=== PATIENT | male | born 1985 ===

== ENCOUNTER 2022-01-07 01:04 | Emergency (ER) | payer SELFPAY ==
[2022-01-07] MEDS ORDERED: SODIUM CHLORIDE 0.9% 1000 ML 1,000 ML IV ONE (02:39)
--- NOTE | 2022-01-07 03:05 | XRay Report ---
CHEST 1 VIEW 01/07/2022 2:47 AM INDICATION / CLINICAL INFORMATION: Alcohol Intoxication. COMPARISON: None available. FINDINGS: SUPPORT DEVICES: None. HEART / MEDIASTINUM: No significant abnormality. LUNGS / PLEURA: No significant pulmonary or pleural abnormality. No pneumothorax. ADDITIONAL FINDINGS: No significant additional findings. IMPRESSION: 1. No acute findings. Signer Name: El Heaton MD Signed: 01/07/2022 3:01 AM Workstation Name: [id number]
--- NOTE | 2022-01-07 03:40 | Cat Scan Report ---
. CT HEAD WITHOUT CONTRAST INDICATION / CLINICAL INFORMATION: Alcohol Intoxication. TECHNIQUE: All CT scans at this location are performed using CT dose reduction for ALARA by means of automated e xposure control. COMPARISON: None available. FINDINGS: No acute intracranial hemorrhage. Ventricles are normal in size without midline shift or mass effect. Visualized orbits appear normal. Walter-white matter differentiation appears normal. Sinuses are clear ADDITIONAL FINDINGS: None. IMPRESSION: 1. No acute intracranial abnormality. Signer Name: El Heaton MD Signed: 01/07/2022 3:36 AM Workstation Name: [id number]
[2022-01-07 04:10] LABS: Alanine Aminotransferase 25 units/L (7-56); Albumin 4.3 g/dL (3.9-5); Blood Urea Nitrogen 16 mg/dL (9-20); Calcium 9.3 mg/dL (8.4-10.2); Hemolysis Index 74
[2022-01-07 04:18] LABS: Basophils % (Auto) 0.6 % (0.0-1.8); Eosinophils # (Auto) 0.4 K/mm3 (0.0-0.4); Eosinophils % (Auto) 4.4 % (0.0-4.3); Hematocrit 43.5 % (35.5-45.6); Hemoglobin 14.8 gm/dl (11.8-15.2); Lymphocytes # (Auto) 3.6 K/mm3 (1.2-5.4); Lymphocytes % (Auto) 44.7 % (13.4-35.0); Mean Corpuscular HGB Conc 34 % (32-34); Mean Corpuscular Volume 92 fl (84-94); Monocytes # (Auto) 0.5 K/mm3 (0.0-0.8); Monocytes % (Auto) 6.4 % (0.0-7.3); Platelet Count 252 K/mm3 (140-440); Red Blood Count 4.73 M/mm3 (3.65-5.03); Red Cell Distribution Width 13.2 % (13.2-15.2)
[2022-01-07 04:22] VITALS: BP 131/95
[2022-01-07 04:25] LABS: BUN/Creatinine Ratio 23
[2022-01-07 05:09] LABS: Amphetamine Screen,Urine PRESUMPTIVE POSITIVE; Benzodiazepines Screen,Urine PRESUMPTIVE POSITIVE; Cannabinoid Screen,Urine PRESUMPTIVE NEGATIVE; Cocaine Screen,Urine PRESUMPTIVE POSITIVE; Methadone Screen,Urine PRESUMPTIVE NEGATIVE; Opiate Screen,Urine PRESUMPTIVE NEGATIVE
[2022-01-07 05:35] LABS: Calcium Oxalate Crystals,Urine 3+; Mucus,Urine 2+ /HPF
--- NOTE | 2022-01-07 05:41 | Emergency Department Report ---
ED General Adult HPI - General Chief complaint: Alcohol Stated complaint: ETOH PUI?: No Time Seen by Provider: 01/07/22 02:35 Source: patient, EMS Mode of arrival: Stretcher Limitations: No Limitations - History of Present Illness Initial comments: Police called EMS for pt who was sleeping against a gas pump. Pt stated that he was drinking moonshine tonight. Arousable. - Related Data Allergies Allergy/AdvReac Type Severity Reaction Status Date / Time No Known Allergies Allergy Unverified 01/07/22 02:26 ED Review of Systems ROS: Stated complaint: ETOH Other details as noted in HPI Constitutional: denies: chills, fever Eyes: denies: eye pain, eye discharge, vision change ENT: denies: ear pain, throat pain Respiratory: denies: cough, shortness of breath, wheezing Cardiovascular: denies: chest pain, palpitations Endocrine: no symptoms reported Gastrointestinal: denies: abdominal pain, nausea, diarrhea Genitourinary: denies: urgency, dysuria Musculoskeletal: denies: back pain, joint swelling, arthralgia Skin: denies: rash, lesions Neurological: denies: headache, weakness, paresthesias Psychiatric: denies: anxiety, depression Hematological/Lymphatic: denies: easy bleeding, easy bruising ED Past Medical Hx - Past Medical History Previous Medical History?: No Hx Hypertension: No - Surgical History Past Surgical History?: No - Social History Smoking Status: Never Smoker Substance Use Type: None ED Physical Exam - General Limitations: Altered Mental Status General appearance: alert, appears intoxicated - Head Head exam: Present: atraumatic, normocephalic - Eye Eye exam: Present: normal appearance - ENT ENT exam: Present: mucous membranes moist - Neck Neck exam: Present: normal inspection - Respiratory Respiratory exam: Present: normal lung sounds bilaterally. Absent: respiratory distress - Cardiovascular Cardiovascular Exam: Present: regular rate, normal rhythm. Absent: systolic murmur, diastolic murmur, rubs, gallop - GI/Abdominal GI/Abdominal exam: Present: soft, normal bowel sounds - Rectal Rectal exam: Present: deferred - Extremities Exam Extremities exam: Present: normal inspection - Back Exam Back exam: Present: normal inspection - Neurological Exam Neurological exam: Present: alert, oriented X3 - Psychiatric Psychiatric exam: Present: normal affect, normal mood - Skin Skin exam: Present: warm, dry, intact, normal color. Absent: rash ED Course Vital Signs 01/07/22 01/07/22 01/07/22 01:05 02:00 02:15 Temperature 98 F Pulse Rate 70 58 L 69 Respiratory 18 17 16 Rate Blood Pressure 128/72 128/75 O2 Sat by Pulse 98 96 98 Oximetry 01/07/22 01/07/22 01/07/22 02:31 02:45 03:00 Temperature Pulse Rate 68 69 68 Respiratory 14 16 16 Rate Blood Pressure 128/75 121/71 128/75 O2 Sat by Pulse 98 96 97 Oximetry 01/07/22 01/07/22 01/07/22 03:17 03:31 03:45 Temperature Pulse Rate 66 69 64 Respiratory 17 16 Rate Blood Pressure 121/71 121/71 121/71 O2 Sat by Pulse 98 98 97 Oximetry 01/07/22 01/07/22 01/07/22 04:01 04:15 04:31 Temperature Pulse Rate 64 67 66 Respiratory 14 16 28 H Rate Blood Pressure 121/71 131/95 131/95 O2 Sat by Pulse 100 95 96 Oximetry 01/07/22 01/07/22 01/07/22 04:45 05:01 05:15 Temperature Pulse Rate 82 68 Respiratory 26 H 15 19 Rate Blood Pressure 131/95 131/95 131/95 O2 Sat by Pulse 98 97 99 Oximetry 01/07/22 05:31 Temperature Pulse Rate Respiratory 21 Rate Blood Pressure 131/95 O2 Sat by Pulse 100 Oximetry ED Medical Decision Making - Lab Data Result diagrams: 01/07/22 03:31 01/07/22 03:25 - Radiology Data Radiology results: report reviewed, image reviewed - Medical Decision Making work up showed multi substance abuse , head ct negative , vss , sobered up wanted to go home Critical care attestation.: If time is entered above; I have spent that time in minutes in the direct care of this critically ill patient, excluding procedure time. ED Disposition Clinical Impression: Altered mental status, Substance abuse Disposition: 07 LEFT AWOL/ELOPED Is pt being admited?: No Does the pt Need Aspirin: No Condition: Stable Instructions: Substance Use Disorder and Mental Illness
[2022-01-07 06:00] LABS: Bilirubin,Urine Negative (Negative); Blood,Urine Negative (Negative)
[2022-01-07 06:01] LABS: Protein,Urine <15 mg/dL mg/dL (Negative)
--- NOTE | 2022-01-08 14:40 | Electrocardiograph Report ---
[facility] Test Date: 2022-01-07 Test Time: 04:03:00 Pat Name: SAJAN WILDE Department: Room: Gender: M Care Mgr: EMILIE : 1985 Requested By: SAMUEL WOOTEN Order Number: [id number] Reading MD: Timothy Nunez Measurements Intervals Wilcox Rate: 61 P: 24 CO: 158 QRS: 39 QRSD: 89 T: 34 QT: 396 QTc: 398 Interpretive Statements Sinus rhythm No previous ECG available for comparison Electronically Signed On 01-08-2022 14:40:21 EDT by Timothy Nunez
== END 2022-01-08 10:05 | disposition left against medical advice (07) ==
LOC: ED 01:04
DX: R41.82 Altered mental status, unspecified (principal); F19.10 Other psychoactive substance abuse, uncomplicated; Z79.899 Other long term (current) drug therapy
CPT/HCPCS: 36415; 70450; 71045; 80053; 80307; 81001; 83690; 83735; 85025; 93005; 96360; 99285; J7030; 80320; G0480